=== PATIENT | female | born 1990 | race Caucasian/White ===

== ENCOUNTER → 2018-03-26 | Outpatient (CLI) | payer OTHER ==
[2018-03-26 12:37] LABS: FREE T4 (FREE THYROXINE) 0.99 NG/DL (0.70-1.48)
== END ==
LOC: LAB 11:29
PROVIDERS: ATTEND Obstetrics & Gynecology Reproductive Endocrinology
DX: Z13.29 Encounter for screening for other suspected endocrine disorder (principal); Z11.59 Encounter for screening for other viral diseases; Z31.41 Encounter for fertility testing; Z13.21 Encounter for screening for nutritional disorder; N92.6 Irregular menstruation, unspecified; E28.2 Polycystic ovarian syndrome
CPT/HCPCS: 36415; 82306; 82627; 82670; 82947; 83001; 83036; 83498; 83516; 84146; 84403; 84439; 84443; 86762; 86787

== ENCOUNTER 2019-08-03 12:32 | Outpatient (CLI) | payer OTHER ==
[~2019-08-03] VITALS: Ht 170.2 cm; Wt 84.0 kg
[2019-08-03 12:57] VITALS: BP 136/79
[2019-08-03 12:59] LABS: BASOPHILS % (AUTO) 0 % (0-10); EOSINOPHILS # (AUTO) 0.1 10^3/uL (0.0-0.3); EOSINOPHILS % (AUTO) 1 % (0-10); HEMATOCRIT 42 % (35-52); LYMPHOCYTES # (AUTO) 1.9 X 10^3 (1.0-4.0); LYMPHOCYTES % (AUTO) 24 % (12-44); MEAN CORPUSCULAR HEMOGLOBIN 31 PG (25-34); MEAN CORPUSCULAR HGB CONC 33 G/DL (32-36); MEAN CORPUSCULAR VOLUME 92 FL (80-99); MEAN PLATELET VOLUME 10.6 FL (7.4-10.4); MONOCYTES # (AUTO) 0.5 X 10^3 (0.0-1.0); MONOCYTES % (AUTO) 6 % (0-12); NEUTROPHILS # (AUTO) 5.5 X 10^3 (1.8-7.8); NEUTROPHILS % (AUTO) 69 % (42-75); PLATELET COUNT 246 10^3/uL (130-400); RED CELL DISTRIBUTION WIDTH 13.9 % (10.0-14.5)
[2019-08-04] MEDS ORDERED: Methylergonovine Maleate PO (19:57)
[2019-08-04] MEDS ORDERED: ACET-77 PO (19:57)
[2019-08-04] MEDS ORDERED: IBUP-844 PO (19:57)
== END 2019-08-03 12:50 | disposition home or self-care (01) ==
LOC: PREOP 12:32
PROVIDERS: ATTEND Obstetrics & Gynecology
DX: Z01.812 Encounter for preprocedural laboratory examination (principal)
CPT/HCPCS: 36415; 85025

== ENCOUNTER 2019-08-04 09:50 | Day surgery (SDC) | payer OTHER ==
[~2019-08-04] VITALS: Ht 170.2 cm; Wt 84.0 kg
[2019-08-04] VITALS (13 sets, daily range): BP systolic 100–123; BP diastolic 64–87
[2019-08-04] MEDS ORDERED: ceFAZolin INJECTION 1,000 MG in WATER (STERILE) FOR INJECTION 10 ML IV ONE (10:45)
[2019-08-04] MEDS ORDERED: metroNIDAZOLE 500MG/100ML IVPB 100 ML IV ONE (10:45)
--- NOTE | 2019-08-04 10:48 | Progress Note-Pre Operative ---
Pre-Operative Progress Note H&P Reviewed The H&P was reviewed, patient examined and no changes noted. Date Seen by Provider: Aug 04, 2019 Time Seen by Provider: 10:00 Date H&P Reviewed: Aug 04, 2019 Time H&P Reviewed: 10:00 Pre-Operative Diagnosis: Incomplete AB, Subchorionic hemorrhage. GEORGE FRIAS DO Aug 04, 2019 10:48
[2019-08-04] MEDS ORDERED: LACTATED RINGERS 1,000 ML IV PRN (10:56)
[2019-08-04] MEDS ORDERED: fentaNYL INJECTION 100 MCG/2 ML AMP ONE (11:07)
[2019-08-04] MEDS ORDERED: MIDAZOLAM 2 MG/2 ML (VERSED) VIAL ONE (11:08)
[2019-08-04] MEDS ORDERED: LIDOCAINE PF 2% 5 ML (XYLOCAINE) VIAL ONE (11:39)
[2019-08-04] MEDS ORDERED: ONDANSETRON 4 MG/2 ML (SDV) Z0FRAN ONE (11:39)
[2019-08-04] MEDS ORDERED: proPOfol 200 MG/20 ML (DIPRIVAN) VIAL IV ONE (11:39)
[2019-08-04] MEDS ORDERED: SEVOFLURANE (ULTANE) 15 ML INHAL SOLN ONE ×5 (11:39→12:51)
[2019-08-04] MEDS ORDERED: METHYLERGONOVINE 0.2 MG/ML (METHERGINE) AMP IM ONE (11:45)
[2019-08-04] MEDS ORDERED: METHYLERGONOVINE 0.2 MG/ML (METHERGINE) AMP ONE (11:50)
[2019-08-04] MEDS ORDERED: BUPIVACAINE 0.25% 30 ML (SENSORCAINE) VIAL ONE (12:04)
[2019-08-04 12:25] LABS: HEMOGLOBIN 10.8 G/DL (11.5-16.0)
[2019-08-04 12:28] LABS: MEAN PLATELET VOLUME 10.9 FL (7.4-10.4); RED CELL DISTRIBUTION WIDTH 13.7 % (10.0-14.5); WHITE BLOOD COUNT 6.9 10^3/uL (4.3-11.0)
[2019-08-04 12:29] LABS: HEMOGLOBIN 10.8 G/DL (11.5-16.0)
[2019-08-04] MEDS ORDERED: LACTATED RINGERS 1,000 ML IV SCH (12:47)
[2019-08-04] MEDS: KETOROLAC 30 MG/ML VIAL IV SCH ×2 (12:50→19:49)
[2019-08-04] MEDS ORDERED: GLYCOPYRROLATE 0.2 MG/ML (ROBINUL) 2 ML VIAL ONE (12:51)
[2019-08-04] MEDS ORDERED: NEOSTIGMINE 3 MG/3 ML VIAL ONE (12:51)
[2019-08-04] MEDS ORDERED: KETOROLAC 30 MG/ML VIAL ONE (12:51)
[2019-08-04] MEDS ORDERED: ROCURONIUM 10 MG/ML 5 ML SYRINGE IV ONE (12:51)
--- NOTE | 2019-08-04 12:59 | OB/GYN Operative Report ---
Operative Report Date of Procedure:Aug 04, 2019 Preoperative Diagnosis: incomplete , s/p embryo transfer, large subchorionic hemorrhage Postoperative Diagnosis: same, post vaginal hemorrhage Name of the Procedure: Suction dilation and curettage; laparoscopy with evacuation of hematoperitoneum Surgeon: George Frias Supervisor Phosphatic Fertilizer(s): [none] Anesthesia: general Indications for Procedure: [] Findings of the Procedure: Large amount of blood clot in the uterus and products of conception; 500 ml blood in the abdomen EBL: 2000 L; transfused x 2 units Name and Description of the Procedure: [] Complications: hemorrhage with transfusion Disposition: stable to recovery room. GEORGE FRIAS DO Aug 04, 2019 12:59
[2019-08-04] MEDS ORDERED: LORATADINE (CLARITIN) 10 MG TAB PO PRN (13:00)
[2019-08-04] MEDS ORDERED: ONDANSETRON 4 MG (ZOFRAN) ORAL DISSOLVE TAB PO PRN (13:00)
[2019-08-04] MEDS ORDERED: LOPERAMIDE 2 MG (IMODIUM) TABLET PO PRN (13:00)
[2019-08-04] MEDS: METHYLERGONOVINE 0.2 MG (MEHTERGINE) TAB PO SCH ×3 (13:00→22:07)
[2019-08-04] MEDS ORDERED: morphine INJ 4 MG/ML 1 ML (VIAL/SYRINGE) IV PRN (13:00)
[2019-08-04] MEDS ORDERED: ONDANSETRON 4 MG/2 ML (SDV) Z0FRAN IVP PRN (13:15)
[2019-08-04] MEDS ORDERED: fentaNYL INJECTION 100 MCG/2 ML AMP IVP ONE (13:15)
[2019-08-04] MEDS ORDERED: MEPERIDINE (DEMEROL) INJ 50 MG/ML IVP ONE (13:15)
[2019-08-04] MEDS ORDERED: morphine INJ 10 MG/ML 1ML (SYR OR VIAL) IVP ONE (13:15)
[2019-08-04] MEDS ORDERED: ACETAMINOPHEN 500 MG TAB (TYLENOL) PO SCH (14:00)
[2019-08-04] MEDS ORDERED: MISOPROSTOL 200 MCG (CYTOTEC) TABLET PO NR (14:00)
--- NOTE | 2019-08-04 14:05 | NUR ---
Arrived to unit via bed from PACU. To room 304. Oriented to room, call light and surroundings. report received from HAND SHAKER Dorcas. plan of care reviewed wit pt and s.o. at bedside. pt reports pain tolerable at this time. ice water to bedside table. pt reports hungry. instructed on ordering process. assessment and vital signs.
--- NOTE | 2019-08-04 14:31 | NUR ---
Dr Lantigua called by rn to for order clarification. Medications discussed and dr lantigua notified of pt pain controlled as of now and vital signs stable with some vaginal bleeding noted.
--- NOTE | 2019-08-04 15:33 | NUR ---
pad changed. noted small amt of rubra on pad.
--- NOTE | 2019-08-04 16:21 | NUR ---
RT notified of incentive ordered
--- NOTE | 2019-08-04 17:28 | NUR ---
Dr Orosco notified of pt request for garcia catheter out. New orders received. plan of care reviewed with pt and s.o. at bedside.
[2019-08-04 17:44] LABS: HEMOGLOBIN 12.8 G/DL (11.5-16.0)
--- NOTE | 2019-08-04 18:15 | NUR ---
pt assisted up to void accompanied by staff. void 400ml, pericare and back to bed. steady gait
--- NOTE | 2019-08-04 18:40 | NUR ---
Dr Orosco called and updated on pt void and request for discharge. Plan of care reviewed with pt.
--- NOTE | 2019-08-04 19:56 | Discharge Inst-Surgical ---
Discharge Inst-Surgical Reconcile Patient Problems Problems Reviewed?: Yes Depart Medication/Instructions New, Converted or Re-Newed RX: RX Given to Pt/Family Patient Instructions expect vaginal spotting, light bleeding for up to 10 days. Call for fever (T over 101), abdominal pain, lack of BM (ok to take milk of magnesia, stool softener but no edema) Call for bleeding > 1 pad per hour x 2 hours Final Diagnosis: miscarriage, vaginal hemorrhage, diagnostic laparo Consults/Follow Up Goal/Follow Up Appt.: 1-2 weeks Activity Activity as Tolerated: Yes Driving Instructions: No Driving for 24 Hours No Driving When on Pain Meds: Yes Avoid ALL Tobacco Products: Smoking of Any Kind, Chewing Tobacco, Second Hand Smoke Diet Discharge Diet: No Restrictions Diet for 24 Hours: No Alcohol, No Ault Foods, No Spicy Foods Diet After 24 Hours: Clear Liquid if Nauseous, Resume Home Diet Symptoms to Report to Physicia: Swelling Increased, Bleeding Excessive, Pain Increased, Fever Over 101 Degrees F, Vaginal Bleeding Increase, Cramps in Feet or Legs, Vaginal Discharge Foul If Any Problems/Questions/Issu: Contact Your Physician Skin/Wound Care Infection Signs and Symptoms: Increased Redness, Foul Odor of Wound, Increased Drainage, Skin Itchy or Has a Rash, Increased Swelling, Temperature Above 101 F Operative Area Clean and Dry: Keep Incision Clean/Dry Stitches/Stevinson/Dermabond Dis: Dermabond (may remove bandages in 3 days) Ice Pack: Ice On and Off Site Restrictions: No Douching, No [place], No Tampons GEORGE FRIAS DO Aug 04, 2019 19:56
[2019-08-04] MEDS ORDERED: IBUP-844 PO (19:57)
[2019-08-04] MEDS ORDERED: Methylergonovine Maleate PO (19:57)
[2019-08-04] MEDS ORDERED: ACET-77 PO (19:57)
--- NOTE | 2019-08-04 20:30 | NUR ---
VS and assessments done. Toradol given. Pt waiting for discharge.
--- NOTE | 2019-08-04 20:50 | NUR ---
Discharge instructions given. Pt verbalized understanding. 2100-pt chose to ambulate to car. this rn walked pt to vehicle with and family.
[2019-08-05] MEDS ORDERED: IBUPROFEN 600 MG (MOTRIN) TAB PO SCH
--- NOTE | 2019-08-05 07:40 | Anesthesia-General Post-Op ---
General Patient Condition Mental Status/LOC: Same as Preop Cardiovascular: Satisfactory Nausea/Vomiting: Absent Respiratory: Satisfactory Pain: Controlled Complications: Absent Post Op Complications Complications None Follow Up Care/Instructions Patient Instructions None needed. Anesthesia/Patient Condition Patient Condition Patient is doing well, no complaints, stable vital signs, no apparent adverse anesthesia problems. No complications reported per nursing. [place] [facility]: Yes ANITHA SWANN CRNA Aug 05, 2019 07:40
== END 2019-08-04 21:00 | disposition home or self-care (01) ==
LOC: SDC 09:50 → WS 14:17 → SDC 21:00
PROVIDERS: ATTEND Obstetrics & Gynecology
DX: O03.9 Complete or unspecified spontaneous abortion without complication (principal)
CPT/HCPCS: 36415; 85014; 85018; 85027; 85049; 86850; 86900; 86901; 86920; 87081

== ENCOUNTER 2020-11-16 08:19 | Inpatient (IN) | payer MEDICAID ==
[2020-11-16] VITALS (12 sets, daily range): BP systolic 96–139; BP diastolic 81–102
[~2020-11-16] VITALS: Ht 172.3 cm; Wt 94.3 kg
[~2020-11-16 08:19] MED LIST: ACET-78 PO; IBUP-844 PO; Methylergonovine Maleate PO
--- NOTE | 2020-11-16 08:25 | NUR ---
Arrived to unit via wheelchair per ed staff and accompanied by . Wt obtained and to room 315. pt c/o contraction pain since midnight. pt moaning with contractions. pt unable to void at this time. To bed. see labor flow sheet notes.
[2020-11-16] MEDS ORDERED: AMPICILLIN 2,000 MG/14.8 ML (IV USE) ONE (08:37)
[2020-11-16] MEDS ORDERED: WATER (STERILE) FOR INJECTION 20 ML ONE (08:37)
[2020-11-16] MEDS ORDERED: LACTATED RINGERS 1,000 ML IV ONE (08:45)
[2020-11-16] MEDS ORDERED: fentaNYL INJECTION 100 MCG/2 ML AMP ONE (08:54)
[2020-11-16] MEDS ORDERED: MIDAZOLAM 10 MG/2 ML (VERSED) VIAL ONE (08:54)
[2020-11-16] MEDS: KETOROLAC 30 MG/ML VIAL IVP SCH ×2 (09:25→18:47)
[2020-11-16] MEDS ORDERED: HYDROmorphone 2 MG/ML VIAL (DILAUDID) ONE (09:27)
[2020-11-16] MEDS ORDERED: KETOROLAC 30 MG/ML VIAL ONE ×2 (09:27→09:48)
[2020-11-16] MEDS ORDERED: ONDANSETRON 4 MG/2 ML (SDV) Z0FRAN ONE ×2 (09:31→09:48)
[2020-11-16] MEDS ORDERED: OXYTOCIN PRE-MIX DRIP 500 ML IV SCH (09:45)
[2020-11-16] MEDS ORDERED: TETANUS,DIPTH,PERTUSS P/F (BOOSTRIX) 0.5 ML VIAL IM ONE (09:45)
[2020-11-16] MEDS ORDERED: MEASLES,MUMPS,RUBELLA 1 EA INJ SC ONE (09:45)
[2020-11-16] MEDS ORDERED: fentaNYL INJECTION 100 MCG/2 ML AMP IVP PRN (09:45)
[2020-11-16] MEDS ORDERED: D5 LR IV SOLUTION 1,000 ML IV SCH (09:45)
[2020-11-16] MEDS ORDERED: SEVOFLURANE (ULTANE) 15 ML INHAL SOLN ONE (09:48)
[2020-11-16] MEDS ORDERED: OXYTOCIN PRE-MIX DRIP 1,000 ML IV ONE (09:48)
[2020-11-16] MEDS ORDERED: LIDOCAINE PF 2% 5 ML (XYLOCAINE) VIAL ONE (09:48)
[2020-11-16] MEDS ORDERED: SUCCINYLCHOLINE INJ 100 MG/5 ML SYR/VIAL ONE (09:48)
[2020-11-16] MEDS ORDERED: proPOfol 200 MG/20 ML (DIPRIVAN) VIAL IV ONE (09:48)
[2020-11-16] MEDS ORDERED: HYDROmorphone 2 MG/ML VIAL (DILAUDID) IV ONE (10:00)
[2020-11-16] MEDS ORDERED: MEPERIDINE (DEMEROL) INJ 50 MG/ML IVP ONE (10:00)
[2020-11-16] MEDS ORDERED: ONDANSETRON 4 MG/2 ML (SDV) Z0FRAN IVP PRN (10:00)
[2020-11-16] MEDS ORDERED: PROMETHAZINE INJ 25 MG/ML (PHENERGAN) AMP IVP ONE (10:00)
[2020-11-16 10:38] LABS: BASOPHILS % (AUTO) 0 % (0-10); EOSINOPHILS % (AUTO) 0 % (0-10); HEMATOCRIT 40 % (35-52); LYMPHOCYTES # (AUTO) 1.9 10^3/uL (1.0-4.0); LYMPHOCYTES % (AUTO) 14 % (12-44); MEAN CORPUSCULAR HEMOGLOBIN 30 pg (25-34); MEAN CORPUSCULAR HGB CONC 33 g/dL (32-36); MEAN CORPUSCULAR VOLUME 91 fL (80-99); MEAN PLATELET VOLUME 13.9 fL (9.0-12.2); MONOCYTES % (AUTO) 7 % (0-12); NEUTROPHILS # (AUTO) 10.8 10^3/uL (1.8-7.8); NEUTROPHILS % (AUTO) 79 % (42-75); PLATELET COUNT 138 10^3/uL (130-400); WHITE BLOOD COUNT 13.8 10^3/uL (4.3-11.0)
--- NOTE | 2020-11-16 10:40 | NUR ---
SASHA SALDAÑA presented to unit via BED from [facility], accompanied by Gi PAEZ RN.
--- NOTE | 2020-11-16 10:53 | NUR ---
NICU TO PT'S BEDSIDE WITH PRIOR TO LEAVING.
--- NOTE | 2020-11-16 11:19 | Diagnostic Imaging Report ---
Indication: Instrument check for stat . COMPARISON: None available TECHNIQUE: Single radiograph of abdomen dated 11/16/2020 FINDINGS: Linear radiopaque density is identified overlying the right inguinal region extending medial to the right femur though is only partially visualized. This measures 8.2 x 2.0 cm within the [id number]. No additional suspicious radiopaque foreign body. No bowel obstruction. Lumbarization of the S1 vertebral body versus sacralization of L5 vertebral body is noted. No acute osseous abnormality. IMPRESSION: 8.2 x 2.0 cm linear hyperdensity overlying the right inguinal/right femoral region is present. Given location, this is favored to be external to the patient. Recommend direct visualization. No suspicious metallic foreign bodies identified. Report was faxed to office of Dr. Tan by deven at 11:17am. Report was faxed/called to [facility] by deven at 1218pm. Dictated by: Dictated on workstation # [id number]
--- NOTE | 2020-11-16 15:22 | History & Physical ---
History and Physical Date Seen by Provider: Nov 16, 2020 Time Seen by Provider: 08:40 This patient is a 29-year-old 5 at the time of admission for her to a 2 white female who presented with advanced labor and a twin gestation. This patient had care in [place] and was in the area began fabricio about midnight and presented less than 30 minutes before I was called to see her as the physician stonecutter hand. She was known to have a twin gestation as a result of IVF per her report. She reports that she had a GBS positive urine culture during this . She had had vaginal deliveries with her prior and was tentatively planning a trial of labor with this twin gestation however she reported that it was known that there was velamentous insertion of the umbilical vessels of twin A. She was admitted as stated dilation at least 7 TO 8 cm was feeling an urge to push. With uncertainty regarding the status of the placentas and membranes and with no access to her record or ultrasound findings and therefore no knowledge of the relative sizes of the fetuses in conjunction with the uncertain future availability of surgery crew and anesthesia due to ongoing cases but having a complete surgery crew and anesthesia are available immediately decision was made to proceed with emergent primary delivery. The patient and her partner agreed with this plan which I felt to be most prudent in light of everything went to about the patient her and the available resources including surgery picking crew supervisor's Patient reports no allergies Patient reports medications include vitamins and supplemental folic acid Patient's past medical history is negative Patient's past surgical history includes some minor procedures but nothing involving the abdomen or pelvis Past obstetric history includes 2 vaginal deliveries and 2 miscarriages 1 at 8 weeks gestation and 1 at 12 weeks of gestation This current is apparently the result of IVF and is twins with one male and one female Social history the patient has her significant other with her she denies drug or alcohol use she relates no history of STDs Gen. patient is a well-developed well-nourished white female in fairly markedly acute distress due to advanced labor and pelvic pain HEENT exam appears normal Neck appear supple Patient's skin is widely covered with tattoos Abdomen is grossly gravid Pelvic exam per the presenting nurse over 20 minutes prior head showed a cervix that was 7+ and Ms. dilated with a bulging bag and the presenting part low in the pelvis monitor showed an active labor pattern with fetus a with a normal- appearing strip and with fetus B heart rate barely represented on the heart rate tracing Laboratory Tests Test 11/16/20 08:42 11/16/20 09:55 Range/Units White Blood Count 13.8 H 4.3-11.0 10^3/uL Red Blood Count 4.35 3.80-5.11 10^6/uL Hemoglobin 13.0 11.5-16.0 g/dL Hematocrit 40 35-52 % Mean Corpuscular Volume 91 80-99 fL Mean Corpuscular Hemoglobin 30 25-34 pg Mean Corpuscular Hemoglobin Concent 33 32-36 g/dL Red Cell Distribution Width 13.4 10.0-14.5 % Platelet Count 138 130-400 10^3/uL Mean Platelet Volume 13.9 H 9.0-12.2 fL Immature Granulocyte % (Auto) 0 % Neutrophils (%) (Auto) 79 H 42-75 % Lymphocytes (%) (Auto) 14 12-44 % Monocytes (%) (Auto) 7 0-12 % Eosinophils (%) (Auto) 0 0-10 % Basophils (%) (Auto) 0 0-10 % Neutrophils # (Auto) 10.8 H 1.8-7.8 10^3/uL Lymphocytes # (Auto) 1.9 1.0-4.0 10^3/uL Monocytes # (Auto) 1.0 0.0-1.0 10^3/uL Eosinophils # (Auto) 0.0 0.0-0.3 10^3/uL Basophils # (Auto) 0.0 0.0-0.1 10^3/uL Immature Granulocyte # (Auto) 0.0 0.0-0.1 10^3/uL Assessment and plan 35 week gestation in a patient with twin in advanced labor with uncertain status of the membranes and placentas and with unknown relative sizes of the fetuses and with questionable future availability of surgery crew for emergent in case of allowing the patient to attempt a vaginal delivery. We have decided to proceed with emergent primary . Patient and her partner, under the current circumstances, agree. See the op note 35 week gestation in advanced labor Allergies and Home Medications Allergies Coded Allergies: No Known Drug Allergies (Unverified , 08/03/19) Home Medications Acetaminophen 500 Mg Tablet, 1,000 MG PO Q8HR Prescribed by: GEORGE FRIAS on 08/04/191956 Ibuprofen 600 Mg Tablet, 600 MG PO Q6HR Prescribed by: GEORGE FRIAS on 08/04/191956 [Methylergonovine Maleate] 0.2 MG TAB, 0.2 MG PO QID Prescribed by: GEORGE FRIAS on 08/04/191956 Patient Home Medication List Home Medication List Reviewed: Yes BHUMIKA SHABAZZ MD Nov 16, 2020 15:22
[2020-11-16] MEDS ORDERED: DCS100C PO (15:30)
[2020-11-16] MEDS ORDERED: IBUP-1780 PO (15:30)
[2020-11-16] MEDS ORDERED: OXYC1TAB12 PO (15:30)
--- NOTE | 2020-11-16 15:31 | Discharge Inst-Surgical ---
Discharge Inst-Surgical Depart Medication/Instructions New, Converted or Re-Newed RX: RX on Chart Consults/Follow Up Patient Instructions: As directed Orders & Referrals Follow Up Appt: RTC 1 week for incision check with me or your PCP Call to make follow up appt. for patient in 6 weeks with me or your PCP. Wound Care: Remove khris, apply benzoin and steri strips. Activity Per routine post instructions. Please call in RX to patient pharmacy. Diet as tolerated Patient may shower or tub bathe as desired. Continue home meds Activity Activity as Tolerated: No Diet Discharge Diet: No Restrictions BHUMIKA SAHBAZZ MD Nov 16, 2020 15:31
[2020-11-16] MEDS: oxyCODONE/APAP 10/325MG (PERCOCET 10) TABLET PO PRN (15:41)
--- NOTE | 2020-11-16 20:12 | OPERATIVE REPORT ---
DATE OF SERVICE: 11/16/2020 PREOPERATIVE DIAGNOSIS: A 35-week twin gestation with labor and with history of velamentous insertion of twin A's umbilical cord noted on prior exam DICTATION ENDS HERE Job ID: [id number] DocumentID: [id number] Dictated Date: 11/16/2020 14:51:41 Bird Raiser Date: 11/16/2020 20:12:19 Dictated By: BHUMIKA SHABAZZ MD
--- NOTE | 2020-11-16 20:21 | OPERATIVE REPORT ---
DATE OF SERVICE: 11/16/2020 PREOPERATIVE DIAGNOSIS: A 35-week twin gestation with labor and with known velamentous insertion of the umbilical cord for twin A. POSTOPERATIVE DIAGNOSIS: A 35-week twin gestation with labor and with known velamentous insertion of the umbilical cord for twin A. OPERATIVE PROCEDURE: Primary low transverse delivery of viable twins. Twin A female born at 0902 with Apgars of 2, 4 and 5 and a weight of 5 pounds 10 ounces and a cord blood pH of 7.26. Twin B is a male born at 0903 with Apgars of 7 and 8, weight of 7 pounds 1 ounce and a cord blood pH of 7.33. OPERATIVE DESCRIPTION: With the patient in the supine position, she was prepped and draped for abdominal surgery after placing a Boyd catheter in the urinary bladder. The patient was then subjected to general anesthesia. On clearance from anesthesia, a Pfannenstiel incision was made through the skin with the scalpel. The abdomen was entered in the usual manner. Bladder retractor placed into position. Clean scalpel was used to make a 4 cm hysterotomy incision transversely across the lower uterine segment that was extended by blunt dissection as well. Copious black amniotic fluid was released on hysterotomy. A female infant with Apgars and stats as noted above was delivered via the uterine incision. The infant was bulb suctioned on delivery, the umbilical cord was doubly clamped and cut and the passed to the pediatric nurse in attendance for the delivery. Attention was then turned to twin B. Manual exploration of the uterus located the head just above the incision that was guided through the incision through the membranes with fundal pressure above and then the membranes were ruptured releasing copious clear fluid and the second twin was delivered also via the uterine incision. The infant was bulb suctioned on delivery. Umbilical cord was doubly clamped and cut and the infant passed to the pediatric nurse in attendance for twin B. Cord bloods were obtained from twin A and twin B. labeled and marked appropriately. The umbilical cord for twin A was then marked with a plastic cord clamp for discrimination between the 2 placentas and then the entire complex was removed from the uterus and sent to pathology for permanent section. The uterus was exteriorized and interior was wiped clean with a wet laparotomy sponge. Uterine incision was then closed with a running locked suture of 2-0 Vicryl. Hemostasis was complete. The uterus was then returned to abdominal cavity. All blood clot and debris removed from the abdominal cavity. Sponge and needle counts correct and hemostasis assured. The anterior parietal peritoneum was closed with running suture of 2-0 Vicryl. Rectus muscles were closed well. The rectus fascia was closed with 2-0 Vicryl, subcutaneous tissue was closed with 2-0 Vicryl and the skin was stapled. Sponge and counts were not taken. A flat plane x-ray had been obtained prior to closing the skin and that failed to show any retained materials or instruments. Sponge and needle counts were seemed to be correct from that x-ray. ESTIMATED BLOOD LOSS: Around 1000 mL. COUNTS: Needle counts were correct. The patient was uneventfully awakened from her general anesthesia and transferred to recovery room in stable condition. The infants both had been taken to the full-term nursery under the care of , the pediatricians on hand for the twin delivery. Job ID: [id number] DocumentID: [id number] Dictated Date: 11/16/2020 15:03:57 Air Cargo Agent Date: 11/16/2020 20:20:35 Dictated By: BHUMIKA SHABAZZ MD
--- NOTE | 2020-11-16 20:50 | NUR ---
Nurse at pt bedside. Pt. states that she is in little pain at the moment and is doing well. Assessment complete at this time. Incision dressing is dry and intact. Fundus is firm. Minimal bleeding noted. Pt. has no questions or concerns at this time.
[2020-11-16] MEDS ORDERED: DOCUSATE SODIUM 100 MG (COLACE) CAP PO SCH (21:00)
[2020-11-16] MEDS: DOCUSATE SODIUM 100 MG (COLACE) CAP PO SCH (22:01)
[2020-11-17] MEDS: KETOROLAC 30 MG/ML VIAL IVP SCH ×3 (00:23→19:46)
[2020-11-17 03:43] VITALS: BP 118/91
--- NOTE | 2020-11-17 06:00 | NUR ---
Abdominal dressing and IV removed per dr's orders. Pt tolerated well. Incision is dry and well approximated. Balaji are dry and intact. Pt. requesting pain meds at this time.
[2020-11-17] MEDS: oxyCODONE/APAP 10/325MG (PERCOCET 10) TABLET PO PRN ×2 (06:01→15:43)
--- NOTE | 2020-11-17 07:44 | Anesthesia-General Post-Op ---
General Patient Condition Mental Status/LOC: Same as Preop Cardiovascular: Satisfactory Nausea/Vomiting: Absent Respiratory: Satisfactory Pain: Controlled Complications: Absent Post Op Complications Complications None Follow Up Care/Instructions Patient Instructions None needed. Anesthesia/Patient Condition Patient Condition Patient is doing well, no complaints, stable vital signs, no apparent adverse anesthesia problems. No complications reported per nursing. TYESHA BATES CRNA Nov 17, 2020 07:44
--- NOTE | 2020-11-17 09:10 | NUR ---
DR. SHABAZZ TO PT'S BEDSIDE.
--- NOTE | 2020-11-17 09:20 | Progress Note ---
Standard Progress Note Progress Notes/Assess & Plan Date Seen by a Provider: Nov 17, 2020 Time Seen by a Provider: 09:18 Progress/Assessment & Plan This patient is without complaint. She is ambulating, voiding, tolerating oral intake well and has good pain control. Patient denies chest pain, denies shortness of breath, denies nausea vomiting, and denies headache. Vital Signs Date Time Temp Pulse Resp B/P (MAP) Pulse Ox O2 Delivery O2 Flow Rate FiO2 11/17/20 03:43 36.2 82 16 118/91 (100) 97 Room Air 11/16/20 23:27 36.1 77 20 133/86 (102) 96 Room Air 11/16/20 18:50 36.5 98 18 132/90 (104) 97 Room Air 11/16/20 14:18 37.1 84 18 139/92 (108) 96 Room Air 11/16/20 12:18 36.7 94 18 131/85 (100) 96 Room Air 11/16/20 10:40 Room Air 11/16/20 10:40 37.0 18 134/87 (103) 98 Room Air 11/16/20 10:30 18 132/89 (103) 99 Room Air 11/16/20 10:26 Room Air 11/16/20 10:22 Room Air 11/16/20 10:20 18 134/96 (109) 100 Room Air 11/16/20 10:18 OxyMask 3 11/16/20 10:11 OxyMask 3 11/16/20 10:10 18 138/102 (114) 100 OxyMask 3 11/16/20 10:06 OxyMask 6 11/16/20 10:00 OxyMask 6 11/16/20 10:00 18 129/98 (108) 100 OxyMask 6 11/16/20 09:50 20 96/88 (91) 100 OxyMask 6 11/16/20 09:44 OxyMask 6 11/16/20 09:44 36.5 20 97/81 (86) 98 OxyMask 6 I & O 11/17/20 07:00 Output Total 2115 ml Balance -2115 ml Vital signs are stable. Patient is afebrile. The abdomen is benign. The fundus is firm below the umbilicus and nontender. Extremities show no clubbing or cyanosis. There is no Homans' sign. Assessment and plan post operative day #1 status post primary delivery at 36 weeks gestation for twins. Patient is doing well. She reports that baby A is doing well at [place] and her brother baby B is doing well here. BHUMIKA SHABAZZ MD Nov 17, 2020 09:20
[2020-11-17] MEDS: DOCUSATE SODIUM 100 MG (COLACE) CAP PO SCH ×2 (09:34→20:30)
[2020-11-17 09:36] VITALS: BP 121/87
--- NOTE | 2020-11-17 09:40 | NUR ---
THIS RN TO BEDSIDE. VS OBTAINED. COLACE GIVEN PO; SEE EMAR FOR FURTHER. INITIAL SHIFT ASSESSMENT COMPLETED; SEE INTERVENTION FOR FURTHER. FRESH ICE WATER PROVIDED. SHOWER SET UP. PT DENIES ANY NEEDS OR QUESTIONS AT THIS TIME. CALL LIGHT WITHIN REACH.
--- NOTE | 2020-11-17 10:24 | NUR ---
SPOKE WITH DR. PATE'S OFFICE ABOUT OBTAINING RECORDS.
[2020-11-17] MEDS: IBUPROFEN 800 MG (MOTRIN) TAB PO SCH ×4 (12:20→19:47)
[2020-11-17 15:40] VITALS: BP 127/79
[2020-11-17 20:30] VITALS: BP 118/74
[2020-11-18 01:55] VITALS: BP 129/78
[2020-11-18] MEDS: IBUPROFEN 800 MG (MOTRIN) TAB PO SCH ×4 (01:55→21:46)
--- NOTE | 2020-11-18 07:58 | Progress Note ---
Standard Progress Note Progress Notes/Assess & Plan Date Seen by a Provider: Nov 18, 2020 Time Seen by a Provider: 07:56 Progress/Assessment & Plan This patient is without complaint. She is ambulating, voiding, tolerating oral intake well and has good pain control. Patient denies chest pain, denies shortness of breath, denies nausea vomiting, and denies headache. Vital Signs Date Time Temp Pulse Resp B/P (MAP) Pulse Ox O2 Delivery O2 Flow Rate FiO2 11/17/20 03:43 36.2 82 16 118/91 (100) 97 Room Air 11/16/20 23:27 36.1 77 20 133/86 (102) 96 Room Air 11/16/20 18:50 36.5 98 18 132/90 (104) 97 Room Air 11/16/20 14:18 37.1 84 18 139/92 (108) 96 Room Air 11/16/20 12:18 36.7 94 18 131/85 (100) 96 Room Air 11/16/20 10:40 Room Air 11/16/20 10:40 37.0 18 134/87 (103) 98 Room Air 11/16/20 10:30 18 132/89 (103) 99 Room Air 11/16/20 10:26 Room Air 11/16/20 10:22 Room Air 11/16/20 10:20 18 134/96 (109) 100 Room Air 11/16/20 10:18 OxyMask 3 11/16/20 10:11 OxyMask 3 11/16/20 10:10 18 138/102 (114) 100 OxyMask 3 11/16/20 10:06 OxyMask 6 11/16/20 10:00 OxyMask 6 11/16/20 10:00 18 129/98 (108) 100 OxyMask 6 11/16/20 09:50 20 96/88 (91) 100 OxyMask 6 11/16/20 09:44 OxyMask 6 11/16/20 09:44 36.5 20 97/81 (86) 98 OxyMask 6 I & O 11/17/20 07:00 Output Total 2115 ml Balance -2115 ml Vital signs are stable. Patient is afebrile. The abdomen is benign. The fundus is firm below the umbilicus and nontender. Extremities show no clubbing or cyanosis. There is no Homans' sign. Assessment and plan post operative day #1 status post primary delivery at 36 weeks gestation for twins. Patient is doing well. She reports that baby A is doing well at [place] and her brother baby B is doing well here. November 18, 2020 This patient is without complaint. She is ambulating, voiding, tolerating oral intake well and has good pain control. Vital Signs Date Time Temp Pulse Resp B/P (MAP) Pulse Ox O2 Delivery O2 Flow Rate FiO2 11/18/20 01:55 36.5 78 18 129/78 (95) 96 Room Air 11/17/20 20:30 36.0 89 16 118/74 (89) 96 Room Air 11/17/20 15:40 37.0 104 16 127/79 (95) 95 Room Air 11/17/20 09:36 36.4 90 16 121/87 (98) 97 Room Air I & O 11/18/20 06:59 Intake Total 1400 ml Output Total 500 ml Balance 900 ml Vital signs are stable. Patient is afebrile. Abdomen is benign. Surgical incision is clean dry and intact. Extremities show no clubbing or cyanosis. There is no Homans' sign. Assessment and plan postoperative day #2 status post primary delivery for advanced labor with twins. Patient is doing well. Apparently baby A had blood cultures positive for group B strep and is currently in the NICU at [place]. We will continue routine convalescent care today and consider discharge home for this patient tomorrow BHUMIKA SHABAZZ MD Nov 18, 2020 07:58
[2020-11-18 08:30] VITALS: BP 136/84
[2020-11-18] MEDS: DOCUSATE SODIUM 100 MG (COLACE) CAP PO SCH ×2 (08:36→21:46)
[2020-11-18 14:00] VITALS: BP 136/82
--- NOTE | 2020-11-18 16:16 | NUR ---
KATE/MARCIE visited with the patient for social service consult. KATE/MARCIE visited with the patient's primary nurse. She reports the patient has a at [facility] and a here receiving medical treatment. It is anticipated for the patient to be discharged this weekend. KATE/MARCIE visited with the patient. She was lying in bed rocking baby at time of visit. She was pleasant and willing to talk. The patient reports that she named her son, Elsie and her daughter, Leonor. Leonor is currently in the NICU at [place]. The patient reports that her is the one that is visiting Leonor every day. The patient and her have 2 additional children ages 11 and 5. She reports that her will usually take the kids to school, go visit [place], and then pick the kids back up in the afternoon. Resources: CM/SS attempted to contact the clinical social worker through the NICU to help assist with additional gas cost from them driving everyday back and forth and/or additional services. No answer, a voicemail was left with contact information. The patient denied a need for assistance with financials at this time; however, KATE/MARCIE would like [facility] to speak with family for resource education. Supports: The patient states that she has a good support system through her and his family. The patient is from [place] and she does not have her family close by. However, she stated she has many friends that have been checking on her. The patient states she is ready for when they can all be together. CM/SS asked how she was doing being in the here in the hospital. She reports that she is holding up well and just has been napping with Elsie today. She declined any additional supportive needs. Services: The patient denies having any services. CM/SS provided information and education on Healthy Families, Parents as Teachers, one to 3 , [facility] Diaper stock (if enrolled in a service). Patient verbalized understanding but declined services at this time. She is not enrolled in [place] and is waiting to see if she can return to breast feeding. The patient reports having cloth diapers and does not need the diaper stock. Supplies: Patient reports she has all needed supplies at home. Denies any needs. CM/SS will continue to follow.
[2020-11-18 21:46] VITALS: BP 137/89
[2020-11-19 03:36] VITALS: BP 126/82
[2020-11-19] MEDS: IBUPROFEN 800 MG (MOTRIN) TAB PO SCH ×3 (03:36→14:46)
[2020-11-19 08:55] VITALS: BP 130/77
[2020-11-19] MEDS: DOCUSATE SODIUM 100 MG (COLACE) CAP PO SCH (09:01)
--- NOTE | 2020-11-19 10:29 | Progress Note ---
Standard Progress Note Progress Notes/Assess & Plan Date Seen by a Provider: Nov 19, 2020 Time Seen by a Provider: 10:29 Progress/Assessment & Plan This patient is without complaint. She is ambulating, voiding, tolerating oral intake well and has good pain control. Patient denies chest pain, denies shortness of breath, denies nausea vomiting, and denies headache. Vital Signs Date Time Temp Pulse Resp B/P (MAP) Pulse Ox O2 Delivery O2 Flow Rate FiO2 11/17/20 03:43 36.2 82 16 118/91 (100) 97 Room Air 11/16/20 23:27 36.1 77 20 133/86 (102) 96 Room Air 11/16/20 18:50 36.5 98 18 132/90 (104) 97 Room Air 11/16/20 14:18 37.1 84 18 139/92 (108) 96 Room Air 11/16/20 12:18 36.7 94 18 131/85 (100) 96 Room Air 11/16/20 10:40 Room Air 11/16/20 10:40 37.0 18 134/87 (103) 98 Room Air 11/16/20 10:30 18 132/89 (103) 99 Room Air 11/16/20 10:26 Room Air 11/16/20 10:22 Room Air 11/16/20 10:20 18 134/96 (109) 100 Room Air 11/16/20 10:18 OxyMask 3 11/16/20 10:11 OxyMask 3 11/16/20 10:10 18 138/102 (114) 100 OxyMask 3 11/16/20 10:06 OxyMask 6 11/16/20 10:00 OxyMask 6 11/16/20 10:00 18 129/98 (108) 100 OxyMask 6 11/16/20 09:50 20 96/88 (91) 100 OxyMask 6 11/16/20 09:44 OxyMask 6 11/16/20 09:44 36.5 20 97/81 (86) 98 OxyMask 6 I & O 11/17/20 07:00 Output Total 2115 ml Balance -2115 ml Vital signs are stable. Patient is afebrile. The abdomen is benign. The fundus is firm below the umbilicus and nontender. Extremities show no clubbing or cyanosis. There is no Homans' sign. Assessment and plan post operative day #1 status post primary delivery at 36 weeks gestation for twins. Patient is doing well. She reports that baby A is doing well at [place] and her brother baby B is doing well here. November 18, 2020 This patient is without complaint. She is ambulating, voiding, tolerating oral intake well and has good pain control. Vital Signs Date Time Temp Pulse Resp B/P (MAP) Pulse Ox O2 Delivery O2 Flow Rate FiO2 11/18/20 01:55 36.5 78 18 129/78 (95) 96 Room Air 11/17/20 20:30 36.0 89 16 118/74 (89) 96 Room Air 11/17/20 15:40 37.0 104 16 127/79 (95) 95 Room Air 11/17/20 09:36 36.4 90 16 121/87 (98) 97 Room Air I & O 11/18/20 06:59 Intake Total 1400 ml Output Total 500 ml Balance 900 ml Vital signs are stable. Patient is afebrile. Abdomen is benign. Surgical incision is clean dry and intact. Extremities show no clubbing or cyanosis. There is no Homans' sign. Assessment and plan postoperative day #2 status post primary delivery for advanced labor with twins. Patient is doing well. Apparently baby A had blood cultures positive for group B strep and is currently in the NICU at [place]. We will continue routine convalescent care today and consider discharge home for this patient tomorrow November 19, 2020 See discharge summary Final Diagnosis See discharge summary BHUMIKA SHABAZZ MD Nov 19, 2020 10:29
--- NOTE | 2020-11-19 10:36 | Discharge Summary ---
Discharge Summary 36-week primary delivery of twins This patient is a 29-year-old multigravid white female who presented at 35 weeks gestation in advanced active labor with twins. Patient had a concerning history of known velamentous insertion of twin A's umbilical cord in addition delivery resources for an emergency were unpredictable as the morning progressed. Decision was made to proceed with emergent delivery while the personnel were available to preclude an emergent issue in the midst of delivery with no personnel available. Patient's history was significant also for a GBS positive urine culture during the . She had received her care in [place]. Patient was taken emergently to the operating room for primary delivery of the twins. See the operative note for delivery outcomes The procedure was uncomplicated and the patient recovered uneventfully. Through the day she was ambulating voiding and tolerating oral intake and had good pain control On postoperative day #1 the patient was again ambulating, voiding, tolerating oral intake well and had good pain control. She was stable through the day. Twin A had been transferred fairly shortly after delivery to [facility] and it was reported that infant had blood cultures positive for group B strep. The patient reported that the her baby was stable On postoperative day #2 patient again was ambulating, voiding, tolerating oral intake well and having good pain control. Twin A and Frieman continue to be stable twin B was stable and progressing well also. Now on postoperative day #3 again patient is ambulating, voiding, tolerating oral intake well and has good pain control. Plan is for discharge home. Principal diagnosis this hospitalization is emergent primary delivery of 35-week twins Secondary diagnoses are labor, dichorionic diamniotic twins, group B positive strep culture during the Operations procedures include monitoring, IV fluid, general anesthesia, primary delivery Patient is given discharge instructions verbally and in writing and a copy is in the chart. Discharge medications are Percocet, Motrin, and Colace patient will continue her vitamins. BHUMIKA SHABAZZ MD Nov 19, 2020 10:36
[2020-11-19 14:45] VITALS: BP 130/85
--- NOTE | 2020-11-19 15:15 | NUR ---
Home instructions given, khris removed and steri strips applied, narcotic script given to dad. Mom to be boarder since infant is staying.
== END 2020-11-19 15:00 | disposition home or self-care (01) | DRG 788 ==
LOC: LDRP 08:19 → WSo 08:19 → LDRP 08:29 → WS 11:01
PROVIDERS: ADMIT Obstetrics & Gynecology; ATTEND Obstetrics & Gynecology
PROC: 10D00Z1 Extraction of Products of Conception, Low, Open Approach (ICD-10-PCS; principal; 2020-11-16 08:51)
DX: O60.14X0 Preterm labor third trimester with preterm delivery third trimester, not applicable or unspecified (principal); Z3A.35 35 weeks gestation of pregnancy; Z37.2 Twins, both liveborn; O99.824 Streptococcus B carrier state complicating childbirth; O30.043 Twin pregnancy, dichorionic/diamniotic, third trimester
CPT/HCPCS: 36415; 74018; 85025; 86850; 86900; 86901; 87635; 99212